=== PATIENT | male | born 1985 | race Caucasian/White ===

== ENCOUNTER 2024-05-24 01:26 | Day surgery (SDC) | payer OTHER, SELFPAY ==
[2024-05-16 16:49] VITALS: BMI 25.4
--- NOTE | 2024-05-16 16:58 | PC.NURSE ---
Report to the Outpatient Waiting Room, entrance under the green pavilion located off [facility], at time _0800_ on date _05/24/24__. Planned Procedure Time: __1000.? Time changes happen often and if your time is changed the preop area will call you the afternoon before. - You and your visitor will be asked to self-screen and do not enter if you have any COVID symptoms. Please call surgeon if you need to reschedule. - A mask is optional within the hospital at this time. Patients may have clear liquids (water, carbonated beverages, clear teas, apple juice) until 3 hours prior to surgery with a maximum of 20 ounces. - No food from midnight until time of surgery and no smoking, or chewing tobacco (or any form of nicotine). No chewing gum, candy or mints. - Infants may have breast milk until 4 hours before surgery, infant formula 6 hours prior to surgery. - Children will be allowed to drink immediately following surgery.? If applicable, please bring a bottle or sippy cup to assist with drinking. Juice, water, soda, and popsicles are readily available.? For infants on formula, please bring formula the day of surgery.? Pacifiers are allowed. Take only the following medications with a SIP of water on the morning of surgery: ___NONE DO NOT STOP ANY OF YOUR OTHER PRESCRIPTION MEDICATIONS PRIOR TO SURGERY EXCEPT THE FOLLOWING Hold all vitamins and supplements for 3 days per anesthesiologist. Medications to discontinue per physician MULTI VITAMIN 3 DAYS PRIOR TO SURGERY, IBUPROFEN 5 DAYS PRIOR TO SURGERY Date to take last dose Please no make-up, nail divehi, hairspray, perfume, deodorant, or body powder the day of surgery.? No jewelry (including any body piercings) or valuables the day of surgery, leave them at home.? Please take a shower or bath the night before, or the morning of, surgery with an antibacterial soap.? Wear comfortable, loose fitting clothing.? Children are encouraged to wear pajamas. - Jewelry must be removed prior to entering the operating room.? Rings and piercings that are not removed may be cut off. - The hospital will not accept responsibility for valuables.? - Please leave all valuables, including medications, at home the day of surgery. If you are going home after surgery, a licensed company tanker truck driver must drive you home.? - NO public transportation without another adult if you receive anesthesia. - We recommend that an adult stay with you for 24 hours following discharge. - We also recommend that you do not drive, make important decision, drink alcoholic beverages, or take any drugs that were not prescribed by your health care provider for at least 24 hours after your discharge time. For Pediatric surgeries, we recommend two adults accompany the child home. Follow any additional instructions given to you from your surgeon. Telephone instructions given to _PATIENT__and asked if any additional questions and then verbalized understanding. Patient advised to call surgeon office or pre surgery nurse liaison [phone] if any additional questions.
[2024-05-24] VITALS (16 sets, daily range): BP systolic 112–142; BP diastolic 70–99; PULSE 67–89; RESP 14–19; TEMP 36.2–36.5; O2SAT 94–100
--- OUTSIDE RECORDS SUMMARY | 2024-05-24 01:29 | XMS_ITS | Clinical Summary ---
Author Organization [address] Address [address] [place] [id number] Care Team Providers Care Investigation Manager Name Role Phone Jet Urias Primary Care Provider [phone] Allergies Active Allergy Reactions Criticality Noted Date Comments Iodinated Contrast Media Hives Medium 09/04/2020 Medications loratadine (CLARITIN) 10 mg tablet Take 10 mg by mouth daily Active fluticasone propionate (FLONASE) 50 mcg/actuation nasal spray Administer 1 spray into each nostril daily Active multivitamin (One-A-Day Essential) tabletIndicatio ns:Vitamin Deficiency Prevention Take 1 tablet by mouth daily Active Active Problems Problem Noted Date Diagnosed Date Hypersomnia 11/04/2020 Assessment & Plan (11/04/2020 3:35 PM CDT): The patient denies the want for a stimulant therapy at this time. I have ordered a CBC, T4, TSH, vitamin-D, vitamin B12 level, and testosterone level. Snoring 09/04/2020 Assessment & Plan (11/04/2020 3:34 PM CDT): Patient continue to use positional therapy. PLMD (periodic limb movement disorder) Assessment & Plan (11/04/2020 3:35 PM CDT): The patient states that he will restart the Requip. Assessment & Plan (09/04/2020 4:03 PM CDT): The patient has periodic limb movements in sleep. He has a normal iron level. I will give him a trial Requip 0.5 mg at bedtime and he will follow up here in 2 months. Social History Tobacco Use Types Packs/Day Years Used Date Smoking Tobacco: Never Smokeless Tobacco: Never AUDIT-C Answer Date Recorded Q1: How often do you have a drink containing alc ohol? 2-4 times a month 03/11/2021 Q2: How many drinks containi ng alcohol do you have on a typical day when you are drinking? 1 or 2 03/11/2021 Q3: How often do you have si x or more drinks on one occasion? Never 03/11/2021 Sex and Gender Information Value Date Recorded Sex Assigned at Not on file Legal Sex Male 6:54 PM VALUE ANALYSIS COORDINATOR Gender Identity Not on file Sexual Orientation Not on file Obstetrics History Last Filed Vital Signs Vital Sign Reading Time Taken Comments Blood Pressure 130/82 03/17/2021 5:20 PM VALUE ANALYSIS COORDINATOR Pulse 80 03/17/2021 5:30 PM VALUE ANALYSIS COORDINATOR Temperature 37.1 C (98.7 F) 03/17/2021 3:35 PM VALUE ANALYSIS COORDINATOR Respiratory Rate 20 03/17/2021 5:30 PM VALUE ANALYSIS COORDINATOR Oxygen Saturation 99% 03/17/2021 5:30 PM VALUE ANALYSIS COORDINATOR Inhaled Oxygen Concentration - - Weight 81.8 kg (180 lb 5.4 oz) 03/17/2021 11:53 AM VALUE ANALYSIS COORDINATOR Height 175.3 cm (5' 9 ) 03/17/2021 11:53 AM VALUE ANALYSIS COORDINATOR Body Mass Index 26.63 03/17/2021 11:53 AM VALUE ANALYSIS COORDINATOR Plan of Treatment Not on file Insurance [facility] Address: [address] [place] [address] [facility] Address: [address] [place] [address] Care Teams Investigation Manager Relationship Specialty Start Date End Date Jet Urias PA PCP - General Physician Elevator Dispatcher 09/04/20
--- OUTSIDE RECORDS SUMMARY | 2024-05-24 01:29 | XMS_ITS | Clinical Summary ---
Author Organization [facility] Address [facility] [place] [address] Care Team Providers Care Prosthetics Technician Name Role Phone None, Provider MD Primary Care Provider Unavaila ble Allergies Active Allergy Reactions Criticality Noted Date Comments Iodine Hives 12/18/2020 Medications famotidine (PEPCID) 20 MG tablet Take 1 tablet (20 mg total) by mouth 2 (two) times daily. 60 tablet 12/13/2021 Active sucralfate (CARAFATE) 1 G tablet Take 1 tablet (1 g total) by mouth 4 (four) times daily before meals and nightly. 120 tablet 12/13/2021 Active Immunizations Name Administration Dates Next Due Tdap (Boostrix) 12/18/2020 Social History Tobacco Use Types Packs/Day Years Used Date Smoking Tobacco: Never Assessed Sex and Gender Information Value Date Recorded Sex Assigned at Not on file Legal Sex Male 12:34 AM CDT Gender Identity Not on file Sexual Orientation Not on file Last Filed Vital Signs Vital Sign Reading Time Taken Comments Blood Pressure 142/85 12/13/2021 7:26 PM CDT Pulse 93 12/13/2021 7:26 PM CDT Temperature 37.4 C (99.4 F) 12/13/2021 7:26 PM CDT Respiratory Rate 18 12/13/2021 7:26 PM CDT Oxygen Saturation 97% 12/13/2021 7:26 PM CDT Inhaled Oxygen Concentration - - Weight 77.1 kg (169 lb 15.6 oz) 12/13/2021 7:26 PM CDT Height 175.3 cm (5' 9 ) 12/13/2021 7:26 PM CDT Body Mass Index 25.1 12/13/2021 7:26 PM CDT Plan of Treatment Health Maintenance Due Date Last Done Comments Annual Physical 1988 Hepatitis C 07/28/2003 Hepatitis B Vaccines (1 of 3 - 19+ 3-dose series) 2004 COVID-19 Vaccine (2 - 2023-2 5 season) 2023 01/12/2021 Influenza Adult (#1) 2024 DTaP, Tdap and Td Vaccines ( 2 - Td or Tdap) 12/18/2030 12/18/2020 HPV Vaccines Aged Out No longer eligi ble based on patient's age to complete this topic Meningococcal B Vaccine Aged Out No l onger eligible based on patient's age to complete this topic Meningococcal Vaccine Aged Out No flavio kevin eligible based on patient's age to complete this topic Pneumococcal Vaccine: Pediat rics (0 to 5 Years) and At-Risk Patients (6 to 64 Years) Aged Out No longer eligi ble based on patient's age to complete this topic RSV Immunizations Under 20 Months Aged Out No longer eligible based on patient's age to complete this topic Insurance Care Teams Prosthetics Technician Relationship Specialty Start Date End Date None, Provider, PCP - General 12/18/20
--- OUTSIDE RECORDS SUMMARY | 2024-05-24 01:29 | XMS_ITS | Referral Summary ---
Author Organization [address] Address [address] [place] [id number] Care Team Providers Care Health Aid Name Role Phone Jet Urias Primary Care Provider [phone] Allergies Active Allergy Reactions Criticality Noted Date [...] on file Legal Sex Male 6:54 PM INVENTORY CONTROLLER Gender Identity Not on file Sexual Orientation Not on file Last Filed Vital Signs Vital Sign Reading Time Taken Comments Blood Pressure 130/82 03/17/2021 5:20 PM INVENTORY CONTROLLER Pulse 80 03/17/2021 5:30 PM INVENTORY CONTROLLER Temperature 37.1 C (98.7 F) 03/17/2021 3:35 PM INVENTORY CONTROLLER Respiratory Rate 20 03/17/2021 5:30 PM INVENTORY CONTROLLER Oxygen Saturation 99% 03/17/2021 5:30 PM INVENTORY CONTROLLER Inhaled Oxygen Concentration - - Weight 81.8 kg (180 lb 5.4 oz) 03/17/2021 11:53 AM INVENTORY CONTROLLER Height 175.3 cm (5' 9 ) 03/17/2021 11:53 AM INVENTORY CONTROLLER Body Mass Index 26.63 03/17/2021 11:53 AM INVENTORY CONTROLLER Plan of Treatment Not on file Insurance [facility] Care Teams Health Aid Relationship Specialty Start Date End Date Jet Urias PA PCP - General Physician Dispatch Lead 09/04/20
--- NOTE | 2024-05-24 07:12 | WPDHPUPDATE1 ---
History and Physical Update Update Date/Time: 05/24/24 07:12 History and Physical has been reviewed, including an updated exam of the patient. There are NO changes in the patient's condition. Risks, benefits, and alternatives have been discussed and questions answered. Patient agrees to proceed with procedure.
[2024-05-24] MEDS: LACTATED RINGERS 1,000 ML 30 ML IV CONT ×2 (10:50→14:13)
[2024-05-24] MEDS: KETOROLAC 15 MG/ML VIAL (*BKC) IV PUSH (10:50)
[2024-05-24] MEDS: ACETAMINOPHEN 500 MG TABLET 1000 MG PO (10:50)
--- NOTE | 2024-05-24 11:40 | P.PNAN_ITS ---
Anes - Initial Pre Proc Eval Procedure: Operation Date: 05/24/24 11:30 Proposed Procedures p Left Shoulder Arthroscopy, with Labral Repair, Proceed as Indicated - Ajay Tran MD Date/Time: 05/24/24 11:40 Surgeon: Ajay Tran MD Pre Op Diagnosis: posterior labral tear left shoulder Patient Data Age: 38 Gender: M Height: 1.75 m Weight: 81.4 kg Last Vital Signs Temp 97.7 F 05/24/24 11:00 Pulse 67 05/24/24 11:00 Resp 14 05/24/24 11:00 BP 118/83 05/24/24 11:00 Pulse Ox 100 05/24/24 11:00 O2 Del Method Room Air 05/24/24 11:00 Allergies Allergy/AdvReac Type Severity Reaction Status Date / Time iodinated radiocontrast dyes Allergy Unknown Rash Uncoded 05/24/24 11:06 Home Medications ?Medication ?Instructions ?Recorded ?Confirmed ?Type fluticasone propionate 50 1 spray intranasal DAILY 02/08/24 05/24/24 History mcg/actuation nasal spray,suspension (Flonase Allergy Relief) loratadine 10 mg tablet (Claritin) 10 mg PO DAILY 02/08/24 05/24/24 History sildenafil 25 mg tablet 25 mg PO DAILY PRN SEXUAL 02/08/24 05/16/24 History DYSTUNCTION acetaminophen 325 mg tablet 325 mg PO Q6H PRN pain 05/16/24 05/24/24 History (Tylenol) ibuprofen 200 mg capsule 200 mg PO Q6H PRN pain 05/16/24 05/24/24 History multivitamin (Daily Multi-Vitamin 1 tablet PO DAILY 05/16/24 05/24/24 History tablet) hydrocodone 5 mg-acetaminophen 325 1 - 2 tablet PO Q4-6H PRN pain 7 05/24/24 Rx mg tablet days #30 tabs Patient hx anesthesia problems: none Family hx anesthesia problems: none Results Review: All pre-operative results and documents have been reviewed as part of the pre- operative evaluation. [facility] Past Medical History Medical History Varicocele Tension type headache Spondylosis without myelopathy Snoring Segmental and somatic dysfunction Scrotal varices Regular astigmatism Periodic limb movement disorder Myopia Insomnia Hypersomnia Hydrocele of testis Surgical History Surgical History History of evacuation of hematoma Subungual Social History Social History Smoking status: Never smoker Tobacco type: cigarettes Alcohol intake: current Alcohol use details: monthly or less Do You Feel Safe in your Home?: Yes Lack of Transportation: No Lack of Food: Never True Current Housing: I Have Housing Concerned About Future Housing: No Difficulty Paying Gas/Electric Bills: No Difficulty Paying for Meds: No Currently Unemployed: No Education: Master's Degree or Higher Difficulty w/ Childcare or Family Care: No Anes - Eval Final PreProcedure Day of Procedure 05/24/24 11:40 Patient weight: normal Lungs: normal air movement Airway: Mallampati scale class II Neurological: alert and oriented Last oral intake: >/= 8 hours ASA classification: II Emergent: no Anesthetic plan: proceed Anesthesia type and monitoring: general ETT and standard monitoring Results Review: All pre-operative results and documents have been reviewed as part of the pre- operative evaluation. Active man, limited by recent achilles injury. Extensive discussion about GA and poss ISB. After discussion, shared decision to hold off on ISB preop. If pt having residual pain not responding to other meds, poss ISB in PACU. All R/B/A discussed w pt who understands and agrees to proceed. Informed Consent: The patient's anesthetic plan and its attendant risks and benefits were discussed with the patient/family/POA. Questions were solicited and answers provided to the satisfaction of the patient/family/POA.
[2024-05-24] MEDS: ceFAZolin 2 GM/D5W 50 ML 2 GM/50 ML BAG IVPB (11:45)
[2024-05-24] MEDS: BUPIVACAINE/EPINEPHRINE 0.5% 50 ML VIAL 30 ML INFILTRATE (11:45)
[2024-05-24] MEDS: EPINEPHrine INJ 1 MG/10 ML SYRINGE 3 MG XX (11:45)
[2024-05-24] MEDS: fentaNYL CITRATE INJ (*CRX) 100 MCG/2 ML VIAL 25 MCG IV PUSH ×7 (14:31→15:34)
--- NOTE | 2024-05-24 15:54 | WPDANESPNB ---
Anes - Peripheral Nerve Block Date/Time: 05/24/24 15:54 I have discussed with the patient/family/POA the placement of a peripheral nerve block for post-operative pain management, including associated risks, benefits, complications, and side effects. Alternative methods of post-operative analgesia were detailed. Questions were solicited and answers provided to the satisfaction of the patient/family/POA. Time-Out: A pre-procedural Time-Out was completed immediately before starting the procedure and confirmed: Patient Identification, Site, Procedure, Patient Position and the Availability of Requisite Equipment. Clinical Indications: Acute post-operative pain management requested by the operative surgeon. Pt in PACU w residual pain despite local injected by surgeon and IV narcotics. Prev Bupiv 0.5% w epi 1:200K, 20 mls given in OR. Pt requesting ISB for pain control as he has been very uncomfortable in PACU. Nerve Block Insertion Note Anes-nerve block: interscalene left Patient position: supine Skin prep: chlorhexidine Needle: 22 gauge, stimulating, insulated echogenic needle. Needle length: 80 mm Technique: ultrasound Injectate: other (Bupiv 0.5% 12 mls. ) Observations: tolerated well Complications: none Procedure start time:: 1540 Procedure end time:: 1548
--- NOTE | 2024-05-24 15:59 | W.PM.PROC2 ---
Procedure Note - Detailed Date of Procedure 05/24/24 Pre-op Diagnosis Posterior labral tear left shoulder Post-op Diagnosis Same Procedure Performed Arthroscopic posterior labral repair Surgeon Ajay Tran MD [employer] Specialist Raiza Hernandez PA-C Anesthesia General Indications Symptomatic posterior labral reverse Bankart tear. History of posterior shoulder injury with chronic posterior pain and subluxation symptoms. Findings Extensive posterior labral disruption. The labral tissue was in good shape. The capsule appeared to be slightly stretched. Four, all suture, knotless suture anchors were placed from 05:30 o'clock to 02:30 o'clock. Simple sutures were placed into the labrum and adjacent capsule. The repair appeared anatomic. The articular cartilage remained healthy. The rotator cuff and biceps were normal. There was no SLAP lesion. Description of Procedure Preoperative antibiotics were given. The patient was brought to the operative room and a general anesthetic was administered. Examination under anesthesia revealed no gross abnormal findings. The patient was carefully positioned in the lateral decubitus position on the beanbag. The shoulder was prepped and draped in the usual sterile fashion. 10 pounds of longitudinal traction was applied. A posterior arthroscopic portal was created. Inspection revealed normal articular cartilage. The posterior labral tear was confirmed. No apparent bone loss. The cartilage was healthy except at the very posterior ridge of the glenoid. The capsular labral complex was mildly displaced. The labral tissue was robust. The tear was extending from the 2:30 position to the 5:30 position. The posterior capsule was mildly patulous. The rotator cuff was intact. The superior and anterior labrum were normal. An anterior portal and a inferior accessory posterior portal were created. The healed and retracted labrum and capsule were carefully elevated from the glenoid. The capsule and labrum were easily reduced back to the labrum without tension. Repair was accomplished with 4 all suture anchors. The insertion cannula was used to place the 1st anchor at the 5:30 position. The disposable Passer was used to pass a suture shuttle through the labrum and capsule. The knotless mechanism was used to cinch a simple suture of labrum and capsule back to the glenoid. The viewing portal was changed anteriorly. Three sequential anchors were placed and tissue secured in a similar fashion. Excellent reduction of the capsule labral complex was accomplished. The humerus position centrally on the glenoid was confirmed. The arthroscopic instruments were removed and wounds closed with interrupted 4-0 Monocryl suture followed by Steri-Strips. A sterile dressing and sling were applied. The patient was extubated and brought to recovery in stable condition. There no complications. Implants Arthrex FiberTak labral anchor and knotless x4 Estimated Blood Loss 20 Drains No Packing No Pathology None sent Complications No immediate complications Condition Stable Disposition PACU [facility] Billing Surgery - Charge Forward: Surgery Billing
--- NOTE | 2024-05-24 17:40 | SUR.PHASEII ---
Pt. meets discharge criteria, IV and vitals discontinued. Pt. waiting on ride.
== END 2024-05-24 17:56 | disposition home or self-care (01) ==
PROVIDERS: Visit Provider Orthopaedic Surgery
PROC: (CPT 29805; principal; 2024-05-24 11:30)
DX: S43.432A Superior glenoid labrum lesion of left shoulder, initial encounter (principal); G89.18 Other acute postprocedural pain; G47.61 Periodic limb movement disorder; G47.00 Insomnia, unspecified; I86.1 Scrotal varices; G47.10 Hypersomnia, unspecified; X58.XXXA Exposure to other specified factors, initial encounter; Z79.1 Long term (current) use of non-steroidal anti-inflammatories (NSAID); Z79.891 Long term (current) use of opiate analgesic; Z98.890 Other specified postprocedural states
CPT/HCPCS: 64415; 29806; A9270; C1713; J0171; J0690; J1885; J2003; J2250; J2270; J2405; J2704; J3010; J7120